=== PATIENT | male | born 1960 | race African-American/Black ===

== ENCOUNTER 2020-02-27 06:55 | Outpatient (CLI) | payer OTHER, SELFPAY ==
[2020-02-27 07:54] LABS: Basophils Absolute Auto 0.1 K/mm3 (0.0-0.1); Basophils Percent Auto 1.1 % (0.2-1.2); Eosinophils Absolute Auto 0.8 K/mm3 (0-0.3); Hematocrit 41.9 % (42.0-52.0); Hemoglobin 13.9 g/dL (14.0-18.0); Immature Granulocyte Absolute 0.02 K/mm3 (0.00-0.031); Immature Granulocyte Percent A 0.4 % (0-0.5); Lymphocytes Absolute Auto 1.73 K/mm3 (0.9-3.2); Lymphocytes Percent Auto 30.6 % (18.3-44.2); Mean Corpuscular HGB Conc 33.2 g/dl (32-36); Mean Corpuscular Hemoglobin 27.9 pg (26-34); Mean Platelet Volume 8.6 fl (7.4-10.4); Monocytes Absolute Auto 0.6 K/mm3 (0.1-0.6); Monocytes Percent Auto 10.1 % (2.6-8.5); Neutrophils Absolute Auto 2.5 K/mm3 (1.3-6.7); Neutrophils Percent Auto 43.8 % (45.5-73.1); Platelet Count Result 211 k/mm3 (150-375); Red Blood Count 4.99 M/mm3 (4.6-6.20); Red Cell Distribution Width 14.1 % (11.5-14.5); White Blood Count 5.7 K/mm3 (4.5-10.0)
[2020-02-27 08:03] LABS: Alanine Aminotransferase 115 U/L (4-50); Albumin Level 4.2 g/dL (3.5-5.1); Alkaline Phosphatase 84 U/L (38-126); Anion Gap 3 mmol/L (8-16); Aspartate Amino Transferase 66 U/L (17-59); Bilirubin,Total 0.5 mg/dL (0.2-1.3); Blood Urea Nitrogen 16 mg/dL (9-20); Calcium 9.7 mg/dL (8.4-10.2); Carbon Dioxide 35 mmol/L (22-30); Chloride 102 mmol/L (98-107); Cholesterol 284 mg/dL (0-200); Estimated Glomerular Filt Rate > 60; Glucose 95 mg/dL (75-110); HDL Direct 44 mg/dL; Potassium 4.4 mmol/L (3.4-5.0); Sodium 140 mmol/L (137-145); Triglycerides 162 mg/dL (<150)
[2020-02-27 08:14] LABS: LDL Cholesterol Direct 213 mg/dL
== END 2020-02-27 06:56 | disposition home or self-care (01) ==
PROVIDERS: PCP Family Medicine; Visit Provider Family Medicine
DX: E78.5 Hyperlipidemia, unspecified (principal); Z79.899 Other long term (current) drug therapy; Z00.00 Encounter for general adult medical examination without abnormal findings; Z12.5 Encounter for screening for malignant neoplasm of prostate
CPT/HCPCS: 36415; 80053; 80061; 84153; 84443; 85025; G0103

== ENCOUNTER 2021-03-15 06:35 | Outpatient (CLI) | payer OTHER, SELFPAY ==
[2021-03-15 07:14] LABS: Basophils Percent Auto 0.5 % (0.2-1.2); Eosinophils Absolute Auto 0.3 K/mm3 (0-0.3); Eosinophils Percent Auto 6.9 % (0-4.4); Hematocrit 42.2 % (42.0-52.0); Hemoglobin 14.1 g/dL (14.0-18.0); Immature Granulocyte Absolute 0.01 K/mm3 (0.00-0.031); Immature Granulocyte Percent A 0.2 % (0-0.5); Lymphocytes Absolute Auto 1.47 K/mm3 (0.9-3.2); Lymphocytes Percent Auto 33.7 % (18.3-44.2); Mean Corpuscular HGB Conc 33.4 g/dl (32-36); Mean Corpuscular Hemoglobin 28.4 pg (26-34); Mean Corpuscular Volume 84.9 fl (80-100); Mean Platelet Volume 8.8 fl (7.4-10.4); Monocytes Absolute Auto 0.5 K/mm3 (0.1-0.6); Monocytes Percent Auto 11.9 % (2.6-8.5); Neutrophils Percent Auto 46.8 % (45.5-73.1); Platelet Count Result 185 k/mm3 (150-375); Red Blood Count 4.97 M/mm3 (4.6-6.20); Red Cell Distribution Width 14.2 % (11.5-14.5); White Blood Count 4.4 K/mm3 (4.5-10.0)
[2021-03-15 07:15] LABS: Add Urine Microscopic? NO; Appearance Urine Clear (Clear); Bilirubin Urine Negative (Negative); Blood Urine Negative (Negative); Color Urine Yellow (Yellow); Glucose Urine UA Negative (Negative); Ketones Urine Negative (Negative); Leukocyte Esterase Ur Negative LEU/UL (Negative); Nitrate Urine Negative (Negative); Protein Urine Negative (Negative); Specific Grav Ur 1.018 (1.001-1.035); Urobilinogen Urine Negative mg/dL (<2.0)
[2021-03-15 07:24] LABS: Alanine Aminotransferase 42 U/L (4-50); Albumin Level 4.4 g/dL (3.5-5.1); Alkaline Phosphatase 55 U/L (38-126); Anion Gap 6 mmol/L (8-16); Aspartate Amino Transferase 36 U/L (17-59); Bilirubin,Total 0.6 mg/dL (0.2-1.3); Blood Urea Nitrogen 18 mg/dL (9-20); Carbon Dioxide 31 mmol/L (22-30); Chloride 102 mmol/L (98-107); Cholesterol 275 mg/dL (0-200); Estimated Glomerular Filt Rate > 60; Glucose 103 mg/dL (65-110); HDL Direct 44 mg/dL; Potassium 4.3 mmol/L (3.4-5.0); Sodium 139 mmol/L (137-145); Triglycerides 154 mg/dL (<150)
[2021-03-15 07:35] LABS: LDL Cholesterol Direct 181 mg/dL
[2021-03-15 07:54] LABS: Prostate Specific Antigen 1.1 ng/mL (< OR = 4.0)
[2021-03-15 08:35] LABS: Hepatitis B Surface Antigen Negative (Negative)
[2021-03-15 08:46] LABS: HAV RESULT Reactive (Negative); Hepatitis B Core IgM Result Negative (Negative)
[2021-03-15 08:52] LABS: Hepatitis C Virus Antibody Negative (Negative)
== END 2021-03-15 06:36 | disposition home or self-care (01) ==
PROVIDERS: PCP Family Medicine; Visit Provider Family Medicine
DX: Z00.00 Encounter for general adult medical examination without abnormal findings (principal); D55.9 Anemia due to enzyme disorder, unspecified; R97.20 Elevated prostate specific antigen [PSA]; E78.5 Hyperlipidemia, unspecified; E55.9 Vitamin D deficiency, unspecified; R79.89 Other specified abnormal findings of blood chemistry; R31.29 Other microscopic hematuria
CPT/HCPCS: 36415; 80053; 80061; 80074; 81003; 82306; 84153; 84443; 85025

== ENCOUNTER 2021-05-03 00:19 | Day surgery (SDC) | payer OTHER, SELFPAY ==
[2021-04-19 15:12] VITALS: BMI 33.7
[2021-05-03 06:47] VITALS: BP 155/79; PULSE 72; RESP 18; TEMP 36.4; O2SAT 100
[2021-05-03] MEDS: LACTATED RINGERS 1,000 ML 150 ML IV CONT (06:59)
--- NOTE | 2021-05-03 07:45 | P.PNAN_ITS ---
Anes - Initial Pre Proc Eval Procedure: Operation Date: 05/03/21 08:00 Proposed Procedures p Screening Colonoscopy - Kel Amin MD Date/Time: 05/03/21 07:45 Surgeon: Kel Amin MD Pre Op Diagnosis: neoplasm screening Patient Data Age: 61 Gender: M Height: 1.68 m Weight: 91.5 kg Last Vital Signs Temp 97.5 F L 05/03/21 06:47 Pulse 72 05/03/21 06:47 Resp 18 05/03/21 06:47 BP 155/79 H 05/03/21 06:47 Pulse Ox 100 05/03/21 06:47 Allergies Allergy/AdvReac Type Severity Reaction Status Date / Time No Known Allergies Allergy Unknown Verified 05/03/21 06:39 Home Medications Medication Instructions Recorded Confirmed Type miconazole nitrate 2 % topical 1 applic TOPICAL DAILY #15 g 03/14/21 04/19/21 Rx cream atorvastatin 20 mg tablet 20 mg PO QHS #90 tablet 03/16/21 04/19/21 Rx Patient hx anesthesia problems: none Family hx anesthesia problems: none Results Review: All pre-operative results and documents have been reviewed as part of the pre-operative evaluation. PMFSH Past Medical History Medical History Dyslipidemia Surgical History Surgical History No pertinent past surgical history Social History Social History Smoking status: Never smoker Second hand tobacco smoke exposure: No Alcohol intake: current Drinks per week: 2 Living arrangements: with family Spiritual care concerns: No Anes - Eval Final PreProcedure Day of Procedure 05/03/21 07:45 Patient weight: obese Heart: regular rate and rhythm Lungs: clear to auscultation Airway: Mallampati scale class II Neurological: alert and oriented Last oral intake: >/= 8 hours ASA classification: II Emergent: no Anesthetic plan: proceed Anesthesia type and monitoring: general GIVS and standard monitoring Results Review: All pre-operative results and documents have been reviewed as part of the pre-operative evaluation. Informed Consent: The patient's anesthetic plan and its attendant risks and bene fits were discussed with the patient/family/POA. Questions were solicited and answers provided to the satisfaction of the patient/family/POA.
--- NOTE | 2021-05-03 07:48 | PM.HPGS ---
History of Present Illness History of Present Illness Consent: Risks, benefits, and alternatives have been discussed and questions answered. Patient agrees to proceed with procedure. Chief complaint: neoplasm screening Narrative: Justin Snow is a 61 year old male here for first screening colonoscopy Review of Systems Constitutional: Constitutional: Denies headache(s) and Denies weakness Eyes: Eyes: Denies blurry vision ENT: Reports Normal hearing present, Denies headache(s) and Denies neck pain Cardiovascular: Cardiovascular: Denies chest pain and Denies dyspnea Respiratory: Respiratory: Denies dyspnea Gastrointestinal: Gastrointestinal: Reports no additional gastrointestinal complaints Genitourinary: Genitourinary: Denies dysuria Musculoskeletal: Musculoskeletal: Denies neck pain Integumentary/Breasts: Skin/Breast: Denies dry skin Neurologic: Reports Normal hearing present, Denies headache(s) and Denies weakness Psychiatric: Psychiatric: Denies anxiety Endocrine: Endocrine: Denies change in body appearance Hematologic/Lymphatic: Hematologic/Lymphatic: Denies easy bleeding Allergic/Immunologic: Allergic/Immunologic: Denies urticaria PMFSH Past Medical History Medical History (Updated 05/03/21 @ 07:49 by Kel Amin MD) Colon cancer screening Dyslipidemia Surgical History Surgical History No pertinent past surgical history Social History Social History Smoking status: Never smoker Second hand tobacco smoke exposure: No Alcohol intake: current Drinks per week: 2 Living arrangements: with family Spiritual care concerns: No Meds Home Medications and Allergies Home Medications Medication Instructions Recorded Confirmed Type miconazole nitrate 2 % topical 1 applic TOPICAL DAILY #15 g 03/14/21 04/19/21 Rx cream atorvastatin 20 mg tablet 20 mg PO QHS #90 tablet 03/16/21 04/19/21 Rx Allergies Allergy/AdvReac Type Severity Reaction Status Date / Time No Known Allergies Allergy Unknown Verified 05/03/21 06:39 Vital Signs Vital Signs - 24 hr 05/03/21 06:47 Temperature 97.5 F L Pulse Rate 72 Respiratory Rate 18 Blood Pressure 155/79 H Pulse Oximetry 100 Exam Const: General: comfortable and no acute distress HENMT: General nose exam: Normal nares present Eyes: General: appearance normal, both eyes and all related structures Neck: Neck: no JVD Resp: Auscultation: clear to auscultation bilaterally Cardio: Rate: regular rate Rhythm: regular rhythm GI: Inspection: non-distended GI Palp: Yes Soft to palpation Skin: General skin exam: normal color Neuro: General: gait normal Speech: normal speech Extrem: General: normal to inspection Psych: Mental Status: mental status grossly normal Assessment and Plan Assessment and plan (1) Colon cancer screening: Code(s): Z12.11 - Encounter for screening for malignant neoplasm of colon Status: Acute Assessment and Plan: colonoscopy
[2021-05-03 08:13] VITALS: BP 102/54; PULSE 70; RESP 21; O2SAT 100
[2021-05-03 08:23] VITALS: BP 156/86; PULSE 73; RESP 18; O2SAT 100
[2021-05-03 08:33] VITALS: BP 153/84; PULSE 74; RESP 20; O2SAT 100
== END 2021-05-03 08:49 | disposition home or self-care (01) ==
PROVIDERS: PCP Family Medicine; Visit Provider Internal Medicine Gastroenterology
PROC: 0DJD8ZZ Inspection of Lower Intestinal Tract, Via Natural or Artificial Opening Endoscopic (ICD-10-PCS; CPT 45378; principal; 2021-05-03 08:00)
DX: Z12.11 Encounter for screening for malignant neoplasm of colon (principal); K64.8 Other hemorrhoids; E78.5 Hyperlipidemia, unspecified; E66.9 Obesity, unspecified; Z68.32 Body mass index [BMI] 32.0-32.9, adult
CPT/HCPCS: 45378; J2704; J7120

== ENCOUNTER 2021-06-21 12:52 | Outpatient (CLI) | payer OTHER, SELFPAY ==
--- NOTE | 2021-06-21 12:58 | ECHO_ITS ---
Patient Info Name: Justin Snow Age: 61 years : 1960 Gender: Male Ht: 66 in Wt: 200 lbs BSA: 2.09 m2 HR: 75 bpm BP: 154 / 82 mmHg Technical Quality: Good Exam Date: 06/21/2021 1:37 PM Exam Location: [facility] Patient Status: Outpatient Admit Date: 06/21/2021 Staff Ordering Physician: Elton Guajardo MD Embedded Software Developer: Dash Saucedo, PAN, RT Attending Provider: Elton Guajardo MD Exam Type: CA echo doppler color flow Study Info Indications R01.1 - Cardiac murmur, unspecified Complete two-dimensional, color flow and Doppler transthoracic echocardiogram is performed. Strain analysis performed. Summary 1. Complete two-dimensional, color flow and Doppler transthoracic echocardiogram is performed. 2. Left ventricular chamber dimension is normal. 3. Ventricular septum is sigmoid shaped. No LVOT obstruction. 4. Left ventricular systolic function is normal, estimated at 60-65%. 5. There is mildly increased left ventricular wall thickness. 6. The left ventricular diastolic function is grade II diastolic dysfunction. 7. E/e' 6 is not elevated. 8. Global longitudinal strain is mildly abnormal at -16.3%. 9. There is moderate aortic valve sclerosis. 10. There is mild aortic valve stenosis with a peak velocity of 180 cm/s, mean gradient of 7 mmHg, and aortic valve area of 1.6 cm2. 11. There is mild aortic valve regurgitation. 12. There is trace mitral valve regurgitation. 13. There is trace pulmonic regurgitation. Left Ventricle E/e' 6 is not elevated. Global longitudinal strain is mildly abnormal at -16.3%. Ventricular septum is sigmoid shaped. No LVOT obstruction. Left ventricular chamber dimension is normal. Left ventricular systolic function is normal, estimated at 60-65%. There is mildly increased left ventricular wall thickness. The left ventricular diastolic function is grade II diastolic dysfunction. Right Ventricle Right ventricular systolic function is normal and with normal TAPSE 2.1 cm. Right ventricular chamber dimension is normal. Left Atria Left atrial chamber dimension is normal. Right Atria Right atrial chamber dimension is normal. Aortic Valve The aortic valve is trileaflet. There is moderate aortic valve sclerosis. There is mild aortic valve stenosis with a peak velocity of 180 cm/s, mean gradient of 7 mmHg, and aortic valve area of 1.6 cm2. There is mild aortic valve regurgitation. Pulmonic Valve There is trace pulmonic regurgitation. Mitral Valve There is no mitral valve stenosis. There is trace mitral valve regurgitation. Tricuspid Valve There is no tricuspid valve regurgitation. Pericardium/Pleural There is no pericardial effusion. Inferior Vena Cava Normal inferior vena cava with >50% collapse upon inspiration consistent with normal right atrial pressure, 5 mmHg. Aorta The aortic root size at the sinus of Valsalva is normal. Left Ventricular Outflow Tract Name Value Normal LVOT 2D LVOT Diameter 2.0 cm LVOT Doppler LVOT Peak Gradient 4 mmHg LVOT Mean Gradient 2 mmHg LVOT
== END 2021-06-21 12:53 | disposition home or self-care (01) ==
PROVIDERS: PCP Family Medicine; Visit Provider Family Medicine
DX: R01.1 Cardiac murmur, unspecified (principal); I35.2 Nonrheumatic aortic (valve) stenosis with insufficiency
CPT/HCPCS: 93306

== ENCOUNTER 2022-08-18 07:27 | Outpatient (CLI) | payer OTHER, SELFPAY ==
--- NOTE | ~2022-08-18 | XR_ITS ---
XR lumbar spine 2-3V 08/18/2022 07:45 Indication: Low back pain after lifting injury Procedure: 3 views lumbar spine Comparison: No prior studies for comparison. Findings: There is mild disc narrowing at L3-4 through L5-S1. Vertebral body heights are maintained. No acute fracture or traumatic malalignment. No spondylolisthesis. Sacral foramen are symmetric. Pedi cles intact. Impression: 1: Mild lumbar spondylosis. Reviewed, dictated and finalized at location A. Impression: 1: Mild lumbar spondylosis.
== END 2022-08-18 07:28 | disposition home or self-care (01) ==
PROVIDERS: PCP Family Medicine; Visit Provider Nurse Practitioner Family
DX: M47.816 Spondylosis without myelopathy or radiculopathy, lumbar region (principal)
CPT/HCPCS: 72100

== ENCOUNTER 2023-11-02 02:42 | Emergency (ER) | payer OTHER, SELFPAY ==
--- NOTE | ~2023-11-02 | CT_ITS ---
EXAMINATION: CT brain wo con DATE: 11/02/2023 04:37 INDICATION: Headache. TECHNIQUE: Computed tomography (CT) of the head was performed without intravenous contrast. The mA wa s adjusted according to patient size. Iterative reconstruction technique was employed. The dose-lengt h product was 681.00 mGy-cm. COMPARISON: None FINDINGS: There is no intracranial hemorrhage, acute infarction, or abnormal intracranial mass lesion . The ventricles are normal in size. The paranasal sinuses are clear. The orbits are normal. The mast oid air cells are normal. IMPRESSION: 1. Normal brain. Reviewed, dictated and finalized at location A. IMPRESSION: 1. Normal brain.
[2023-11-02 02:46] VITALS: BP 178/76; PULSE 66; RESP 20; TEMP 36.7; O2SAT 99
[2023-11-02] MEDS: SODIUM CHLORIDE 0.9% IV 1,000 ML 999 ML IV CONT (04:59)
[2023-11-02] MEDS: KETOROLAC 30 MG/ML VIAL (*BKC) IV PUSH (05:05)
[2023-11-02] MEDS: PROCHLORPERAZINE EDISYLATE 10 MG/2 ML VIAL IV PUSH (05:05)
[2023-11-02] MEDS: diphenhydrAMINE HCl INJ 50 MG/ML VIAL IV PUSH (05:05)
[2023-11-02 05:06] VITALS: BP 167/78; PULSE 60; RESP 17; O2SAT 100
[2023-11-02 05:11] LABS: Basophils Percent Auto 0.9 % (0.2-1.2); Eosinophils Absolute Auto 0.1 K/mm3 (0-0.3); Eosinophils Percent Auto 2.6 % (0-4.4); Hematocrit 36.4 % (42.0-52.0); Hemoglobin 11.9 g/dL (14.0-18.0); Immature Granulocyte Absolute 0.02 K/mm3 (0.00-0.031); Immature Granulocyte Percent A 0.5 % (0-0.5); Lymphocytes Absolute Auto 1.26 K/mm3 (0.9-3.2); Lymphocytes Percent Auto 29.8 % (18.3-44.2); Mean Corpuscular HGB Conc 32.7 g/dl (32-36); Mean Corpuscular Hemoglobin 27.8 pg (26-34); Mean Platelet Volume 8.1 fl (7.4-10.4); Monocytes Absolute Auto 0.4 K/mm3 (0.1-0.6); Monocytes Percent Auto 9.9 % (2.6-8.5); Neutrophils Absolute Auto 2.4 K/mm3 (1.3-6.7); Neutrophils Percent Auto 56.3 % (45.5-73.1); Platelet Count Result 292 k/mm3 (150-375); Red Blood Count 4.28 M/mm3 (4.6-6.20); Red Cell Distribution Width 14.3 % (11.5-14.5); White Blood Count 4.2 K/mm3 (4.5-10.0)
[2023-11-02 05:20] LABS: Alanine Aminotransferase 20 U/L (6-50); Albumin Level 3.7 g/dL (3.5-5.1); Alkaline Phosphatase 68 U/L (38-126); Anion Gap 5 mmol/L (4-12); Aspartate Amino Transferase 34 U/L (17-59); Bilirubin,Total 0.4 mg/dL (0.2-1.3); Blood Urea Nitrogen 10 mg/dL (9-20); Calcium 8.4 mg/dL (8.4-10.2); Carbon Dioxide 29 mmol/L (22-30); Chloride 102 mmol/L (98-107); Estimated CRCL calculation 72 ml/min; Estimated Glomerular Filt Rate > 60; Glucose 95 mg/dL (65-110); Potassium 4.2 mmol/L (3.4-5.0); Sodium 136 mmol/L (137-145)
[2023-11-02 05:34] LABS: Strep Group A RT-PCR DETECTED (Negative)
--- NOTE | 2023-11-02 05:43 | ED.GENADULT ---
HPI - General Adult General Chief complaint: Headache Stated complaint: headache Time Seen by Provider: 11/02/23 04:08 History of Present Illness HPI narrative: patient is a 63-year-old gentleman who presents emergency department with chief complaint of headache for the last 3 days the patient also reports he has had some body aches and sore throat. Patient reports he has had no fever of reports that the headache is significantly bother him. Patient reports no photophobia denies nuchal rigidity Related Data Home Medications Medication Instructions Recorded Confirmed hydroxyzine HCl 10 mg tablet 10 mg PO QHS PRN 10/02/23 10/02/23 ketoconazole 2 % topical cream applic topical .2 times weekly 10/02/23 10/02/23 ruxolitinib 1.5 % topical cream applic topical BID 10/02/23 10/02/23 (Opzelura) Allergies Allergy/AdvReac Type Severity Reaction Status Date / Time No Known Allergies Allergy Unknown Verified 10/02/23 07:42 Review of Systems Review of Systems: A 10 system review of systems was completed on the patient and is negative except for what is stated in the HPI. Nursing and ancillary documentation was reviewed. [facility] Past Medical History Medical History Colon cancer screening Dyslipidemia Surgical History Surgical History No pertinent past surgical history Social History Social History Smoking status: Never smoker Second hand tobacco smoke exposure: No Alcohol intake: current Drinks per week: 2 Lack of Transportation: No Lack of Food: Never True Current Housing: I Have Housing Concerned About Future Housing: No Difficulty Paying Gas/Electric Bills: No Difficulty Paying for Meds: No Currently Unemployed: No Education: Master's Degree or Higher Difficulty w/ Childcare or Family Care: No Living arrangements: with family Spiritual care concerns: No Exam Narrative: GENERAL: Well-appearing, well-nourished, and in no acute distress. HEAD: Normocephalic, atraumatic. EYES: PERRLA and EOMI. ENT: Nares clear, no rhinorrhea or epistaxis. Mucous membranes moist. NECK: Supple. CHEST: Clear to auscultation. No respiratory distress. HEART: Regular rate and rhythm. No murmur heard. Normal peripheral pulses. ABDOMEN: Soft, nontender, nondistended, normal active bowel sounds. EXTREMITIES: Normal range of motion. No edema. SKIN: Warm, dry, no rash. NEURO: No focal deficits. Alert and oriented x3. PSYCH: Normal mood and affect. Course Vital Signs Vital signs: Vital Signs Temperature 36.7 C 11/02/23 02:46 Pulse Rate 66 11/02/23 02:46 Respiratory Rate 20 11/02/23 02:46 Blood Pressure 178/76 H 11/02/23 02:46 Pulse Oximetry 99 11/02/23 02:46 Oxygen Delivery Room Air 11/02/23 02:46 Temperature 36.7 C 11/02/23 02:46 Pulse Rate 60 11/02/23 05:06 Respiratory Rate 17 11/02/23 05:06 Blood Pressure 167/78 H 11/02/23 05:06 Pulse Oximetry 100 11/02/23 05:06 Oxygen Delivery Room Air 11/02/23 02:46 Medical Decision Making [facility] Narrative Medical decision making narrative: differential diagnosis includes strep pharyngitis, COVID flu, RSV, migraine headache laboratory studies were obtained on the patient shows CBC with white count 4.2 electrolytes are within normal limits strep was positive Vital Signs Vital Signs: Vital Signs Temperature 36.7 C 11/02/23 02:46 Pulse Rate 66 11/02/23 02:46 Respiratory Rate 20 11/02/23 02:46 Blood Pressure 178/76 H 11/02/23 02:46 Pulse Oximetry 99 11/02/23 02:46 Oxygen Delivery Room Air 11/02/23 02:46 Temperature 36.7 C 11/02/23 02:46 Pulse Rate 60 11/02/23 05:06 Respiratory Rate 17 11/02/23 05:06 Blood Pressure 167/78 H 11/02/23 05:06 Pulse Oximetry 100 11/02/23 05:06
[2023-11-02 05:46] LABS: Influenza A QL RT-PCR Negative (Negative); Influenza B QL RT-PCR Negative (Negative); RSV RNA, RT-PCR Negative (Negative); SARS-CoV-2 RNA PCR Negative (Negative)
[2023-11-02 06:46] VITALS: BP 167/83; PULSE 60; RESP 15; O2SAT 99
== END 2023-11-02 06:47 | disposition home or self-care (01) ==
PROVIDERS: Emergency Provider Emergency Medicine; PCP Family Medicine
DX: J02.0 Streptococcal pharyngitis (principal); R51.9 Headache, unspecified; E78.5 Hyperlipidemia, unspecified; Z20.822 Contact with and (suspected) exposure to COVID-19
CPT/HCPCS: 36415; 70450; 80053; 85025; 87637; 87651; 96361; 96374; 96375; 99284; J0780; J1200; J1885; J7030

== ENCOUNTER 2024-01-04 07:16 | Outpatient (CLI) | payer OTHER, SELFPAY ==
[2024-01-04 07:53] LABS: Basophils Percent Auto 0.7 % (0.2-1.2); Eosinophils Absolute Auto 0.2 K/mm3 (0-0.3); Eosinophils Percent Auto 5.8 % (0-4.4); Hematocrit 42.9 % (42.0-52.0); Hemoglobin 13.9 g/dL (14.0-18.0); Immature Granulocyte Absolute 0.01 K/mm3 (0.00-0.031); Immature Granulocyte Percent A 0.2 % (0-0.5); Lymphocytes Absolute Auto 1.57 K/mm3 (0.9-3.2); Lymphocytes Percent Auto 38.2 % (18.3-44.2); Mean Corpuscular HGB Conc 32.4 g/dl (32-36); Mean Corpuscular Hemoglobin 28.3 pg (26-34); Mean Corpuscular Volume 87.4 fl (80-100); Mean Platelet Volume 8.4 fl (7.4-10.4); Monocytes Absolute Auto 0.5 K/mm3 (0.1-0.6); Monocytes Percent Auto 10.9 % (2.6-8.5); Neutrophils Absolute Auto 1.8 K/mm3 (1.3-6.7); Neutrophils Percent Auto 44.2 % (45.5-73.1); Platelet Count Result 211 k/mm3 (150-375); Red Blood Count 4.91 M/mm3 (4.6-6.20); Red Cell Distribution Width 15.9 % (11.5-14.5); White Blood Count 4.1 K/mm3 (4.5-10.0)
[2024-01-04 08:05] LABS: Alanine Aminotransferase 25 U/L (6-50); Albumin Level 4.2 g/dL (3.5-5.1); Alkaline Phosphatase 50 U/L (38-126); Anion Gap 6 mmol/L (4-12); Aspartate Amino Transferase 30 U/L (17-59); Bilirubin,Total 0.6 mg/dL (0.2-1.3); Blood Urea Nitrogen 14 mg/dL (9-20); Calcium 9.3 mg/dL (8.4-10.2); Carbon Dioxide 32 mmol/L (22-30); Chloride 103 mmol/L (98-107); Cholesterol 257 mg/dL (0-200); Estimated Glomerular Filt Rate > 60; Glucose 90 mg/dL (65-110); HDL Direct 40 mg/dL; Potassium 4.3 mmol/L (3.4-5.0); Sodium 141 mmol/L (137-145); Triglycerides 164 mg/dL (<150)
[2024-01-04 08:16] LABS: LDL Cholesterol Direct 152 mg/dL
[2024-01-04 08:34] LABS: Prostate Specific Antigen 1.2 ng/mL (< OR = 4.0)
[2024-01-04 08:43] LABS: Vitamin D 25 Hydroxy 27.9 ng/mL
== END 2024-01-04 07:17 | disposition home or self-care (01) ==
LOC: ANHLAB 07:17
PROVIDERS: PCP Family Medicine; Visit Provider Family Medicine
DX: Z00.00 Encounter for general adult medical examination without abnormal findings (principal); Z79.899 Other long term (current) drug therapy; Z12.5 Encounter for screening for malignant neoplasm of prostate; E55.9 Vitamin D deficiency, unspecified; E53.8 Deficiency of other specified B group vitamins
CPT/HCPCS: 36415; 80053; 80061; 82306; 82607; 84153; 84443; 85025; G0103

== ENCOUNTER 2024-10-19 07:24 | Outpatient (CLI) | payer OTHER, SELFPAY ==
--- OUTSIDE RECORDS SUMMARY | 2024-10-19 07:28 | XMS_ITS | Clinical Summary ---
Author Organization [facility] Address [address] [place] [address] Care Team Providers Care Photovoltaic Solar Cell Designer Name Role Phone Unavailable Primary Care Provider Unavailabl e Source Comments [facility],non-owned Affiliates and Associated Physician Practices is amultiple site organization consisting of ambulatory clinics and hospital sitesin [place], [place], [place] and [place]. This disclosure is being madepursuant to the Care Everywhere program and may not contain all information available regarding this patient. Last updated 17.[facility] [email or web address] Allergies No known active allergies Medications * Be aware that medications may not be up to date on this document. Alwaysverify current medications with the patient. Other terbiforte hydrochloride cream Bid Active ciprofloxacin (CIPRO) 500 MG tablet Take 1 tablet by mouth 2 times daily 20 tablet 05/22/19 20 Active tacrolimus (PROTOPIC) 0.1 % ointmentIndication s:Rash and other nonspecific skin eruption,Lichenifi cation and lichen simplex chronicus Apply to affected areas on buttock/groin two times daily. 30 days supply. 100 g 1 08/13/19 20 Active econazole nitrate (SPECTAZOLE) 1 % creamIndications:R alyssa and other nonspecific skin eruption,Erosio interdigitalis blastomycetica Apply to affected area between toes 2 times daily. 30 days supply. 85 g 1 08/13/19 20 Active levoFLOXacin (LEVAQUIN) 500 MG tabletIndications: Pseudomonas infection Take 1 tablet by mouth once daily 60 tablet 12/04/19 20 Active fluconazole (DIFLUCAN) 150 MG tabletIndications: Erosio interdigitalis blastomycetica Take 150mg by mouth once a week for 8 weeks. 8 tablet 01/29/20 Active Additional Information Patient taking differently: 150 mg Oral ONCE, Take 150mg by mouth once a week for 8 weeks., Reported on 01/29/2020 ketoconazole (NIZORAL) 2 % creamIndications:E rhoda interdigitalis blastomycetica Apply to toe spaces and buttock twice daily. 30 days supply. 60 g 5 01/29/20 Active hydrOXYzine hcl (ATARAX) 25 MG tabletIndications: Other pruritus Take 1-2 tablets nightly, as needed. 30 tablet 1 01/29/20 Active Additional Information Patient taking differently: 25 mg Oral PRN, Take 1-2 tablets nightly, as needed., Reported on 01/29/2020 gentamicin (GARAMYCIN) 0.1 % topical ointmentIndication s:Skin infection Apply to affected area 3 times daily Apply to affected areas at feet and between toes and gluteal cleft/buttocks three times daily. 30 days supply 30 g 1 01/29/20 Active Active Problems Problem Noted Date Diagnosed Date Dermatophytosis 12/04/2019 Enlargement of submandibular gland 12/04/2019 Heart murmur 12/04/2019 Routine general medical exam ination at a health care facility 12/04/2019 Resolved Problems Problem Noted Date Diagnosed Date Resolved Date Constipation 12/04/2019 01/01/2020 Immunizations Immunization Administration Dates Next Due INFLUENZA VACCINE 01/22/2019 Family History Medical History Relation Name Comments Asthma Neg Hx CVA Neg Hx Cancer - Breast Neg Hx Cancer - Other Neg Hx Cancer - Skin, Melanoma Neg Hx Cancer - Skin, Non Melanoma Neg Hx Eczema Neg Hx Hemophilia Neg Hx Psoriasis Neg Hx Social History Tobacco Use Types Packs/Day Years Used Date Smoking Tobacco: Never Smokeless Tobacco: Never Sex and Gender Information Value Date Recorded Sex Assigned at Not on file Legal 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 Gender Identity Not on file Sexual Orientation Not on file Plan of Treatment Health Maintenance Due Date Last Done Comments COLOGUARD (AGES 45-75) - COL ON CA SCREENING 1960 COLON MONITORING 1960 COLONOSCOPY - COLON CA SCREENING 1960 CT COLONOGRAPHY - COLON CA SCREENING 1960 Colorectal Cancer Screening 1960 FIT - COLON CA SCREENING 1960 FLEX SIG - COLON CA SCREENING 1960 LIPID TESTING 1960 HIV SCREENING 1974 HEPATITIS C SCREENING 03/16/1977 DTAP/TDAP/TD VACCINES (1 - Tdap) 1978 PNEUMOCOCCAL VACCINE 50+ (1 of 1 - PCV) 2009 ZOSTER VACCINE (1 of 2) 2009 COVID-19 VACCINE (1 - 2023-2 5 season) 2023 DEPRESSION SCREENING 03/11/2024 INFLUENZA VACCINE (#1) 2024 01/22/2019 Respiratory Syncytial Virus (RSV) Vaccine Pt: or over 60 yrs (1 - 1-dose 75+ series) 2034 HEPATITIS B VACCINE Aged Out No longe r eligible based on patient's age to complete this topic HIB VACCINE Aged Out No longer eligi ble based on patient's age to complete this topic HPV VACCINE Aged Out No longer eligi ble based on patient's age to complete this topic MENINGOCOCCAL (Group B) VACC INE SHARED DECISION-MAKING Aged Out No longer eligibl e based on patient's age to complete this topic MENINGOCOCCAL GROUPS A/C/Y/W VACCINE Aged Out No longer eligible b ased on patient's age to complete this topic Insurance Joberator Joberator
--- OUTSIDE RECORDS SUMMARY | 2024-10-19 07:28 | XMS_ITS | Encounter Summary ---
Author Organization [facility] Address [address] [place] [address] Care Team Providers Care Peer Health Promoter Name Role Phone Unavailable Primary Care Provider Unavailabl e Reason for Visit * Reason Onset Date Comments Results 05/04/2019 Encounter Details Date Type Department Care Team (Late st Contact Info) Description 05/04/2019 Telephone [facility] [address] [place] [address] Keri Aguillon MD [address] [facility] [address] [place] [address] Results Social History Tobacco Use Types Packs/Day Years Used Date Smoking Tobacco: Never Smokeless Tobacco: Never Sex and Gender Information Value Date Recorded Sex Assigned at Not on file 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 He is inquiring about test results. Please advise L COATER * Telephone Encounter - Sidney Pulido MD - 05/05/2019 8:44 AM CST Called patient and left VM. Will try again later. Sidney Pulido MD [facility] Dermatology Resident PGY-II L COATER * Telephone Encounter - Keri Aguillon MD - 05/05/2019 8:[address] uPlido, Please call patient to review Cx results. We had trouble reaching him last week. I will re-forward you the culture result note and have also copied it below here. Please call and update patient. ??Fungal/yeast prelim negative x 2. ??Bacterial Cx from foot and buttocks showing the same results, positive for pseudomonas and citrobacter. ??Rec start [id number] BID x 10 days. ??Both organisms will be treated by this. ??Warn of black box warning of tendon rupture, avoid quick movements/strenuous activity and prednisone to decrease risk but limited antib iotic options given both types of organisms. D/c econazole cream for now pending fungal Cx results.??Start gentamicin ointment TID with vinegar soaks to all areas. ??Will follow up pending final Cx result and when records received. ??Please send both Rx. ?? On Saturday05/01/2019, after third attempt to reach patient I went ahead and sent in Rx for gentamicin ointment so he likely needs to pick that up and Rx for cipro. Thanks, Keri Aguillon MD 8:15 AM, 05/05/2019 L COATER * Telephone Encounter - Lyndsey Gusman - 05/04/2019 10:20 AM CST Pt called asking for Results from his culture. His cell ph [phone]. Sarita Gusman Senior Patient Cigar Patcher Department of Dermatology, Mohs Surgery and Cutaneous Oncology [facility] Dermatology [facility] L COATER documented in this encounter Plan of Treatment Not on file documented as of this encounter Visit Diagnoses Not on filedocumented in this encounter
[2024-10-19 08:17] LABS: Hemoglobin A1C 6.3 % (<5.7)
[2024-10-19 08:23] LABS: Alanine Aminotransferase 28 U/L (6-50); Albumin Level 4.0 g/dL (3.5-5.1); Alkaline Phosphatase 60 U/L (38-126); Anion Gap 6 mmol/L (4-12); Aspartate Amino Transferase 47 U/L (17-59); Bilirubin,Total 0.7 mg/dL (0.2-1.3); Blood Urea Nitrogen 13 mg/dL (9-20); Calcium 8.9 mg/dL (8.4-10.2); Carbon Dioxide 26 mmol/L (22-30); Chloride 107 mmol/L (98-107); Cholesterol 244 mg/dL (0-200); Estimated Glomerular Filt Rate > 60; Glucose 95 mg/dL (65-110); HDL Direct 40 mg/dL; Potassium 3.8 mmol/L (3.4-5.0); Sodium 139 mmol/L (137-145); Total Protein 7.3 g/dL (6.3-8.2); Triglycerides 103 mg/dL (<150)
== END 2024-10-19 07:25 | disposition home or self-care (01) ==
LOC: ANHLAB 07:27
PROVIDERS: PCP Family Medicine; Visit Provider Family Medicine
DX: E78.5 Hyperlipidemia, unspecified (principal); I10 Essential (primary) hypertension; R73.9 Hyperglycemia, unspecified; E55.9 Vitamin D deficiency, unspecified
CPT/HCPCS: 36415; 80053; 80061; 82306; 83036

== ENCOUNTER 2025-01-13 10:14 | Outpatient (CLI) | payer OTHER, SELFPAY ==
--- NOTE | ~2025-01-13 | US_ITS ---
BILATERAL LOWER EXTREMITY VENOUS DUPLEX Clinical History: R60.0 - Localized edema . Comparison: 08/07/2016. Technique: Grayscale, color, duplex/spectral Doppler sonography bilateral lower extremities. Findings: Bilateral common femoral, femoral, popliteal, and calf veins compressible and color Doppler patent. Normal augmentation with distal compression. No internal echoes. IMPRESSION: 1. No DVT either leg. Reviewed, dictated and finalized at location R. DELIVERER IMPRESSION: 1. No DVT either leg.
== END 2025-01-13 10:15 | disposition home or self-care (01) ==
LOC: GOSHIMG 10:15
PROVIDERS: PCP Family Medicine; Visit Provider Nurse Practitioner Family
DX: R60.0 Localized edema (principal)
CPT/HCPCS: 93970

== ENCOUNTER 2025-01-13 11:15 | Outpatient (CLI) | payer OTHER, SELFPAY ==
[2025-01-13 13:58] LABS: Hematocrit 41.6 % (42.0-52.0); Hemoglobin 13.6 g/dL (14.0-18.0); Immature Granulocyte Percent A 0.4 % (0-0.5); Lymphocytes Absolute Auto 0.95 K/mm3 (0.9-3.2); Mean Corpuscular HGB Conc 32.7 g/dl (32-36); Mean Corpuscular Hemoglobin 28.0 pg (26-34); Mean Corpuscular Volume 85.8 fl (80-100); Nucleated Red Blood Cells Absolute Auto 0.000 K/mm3 (0.0-0.012); Nucleated Red Blood Cells Perc 0.0 % (0.0-0.2); Platelet Count Result 155 k/mm3 (150-375); Red Blood Count 4.85 M/mm3 (4.6-6.20); White Blood Count 5.3 K/mm3 (4.5-10.0)
[2025-01-13 14:09] LABS: Alanine Aminotransferase 65 U/L (6-50); Albumin Level 4.2 g/dL (3.5-5.1); Alkaline Phosphatase 64 U/L (38-126); Anion Gap 5 mmol/L (4-12); Aspartate Amino Transferase 59 U/L (17-59); Bilirubin,Total 0.4 mg/dL (0.2-1.3); Blood Urea Nitrogen 16 mg/dL (9-20); Calcium 9.2 mg/dL (8.4-10.2); Carbon Dioxide 32 mmol/L (22-30); Chloride 100 mmol/L (98-107); Estimated Glomerular Filt Rate > 60; Glucose 97 mg/dL (65-110); Potassium 4.4 mmol/L (3.4-5.0); Sodium 137 mmol/L (137-145); Total Protein 8.0 g/dL (6.3-8.2)
--- OUTSIDE RECORDS SUMMARY | 2025-01-14 10:52 | XMS_ITS | Clinical Summary ---
Author Organization [facility] Address [address] [place] [address] Care Team Providers Care Screener And Blender Operator Name Role Phone Unavailable Primary Care Provider Unavailabl e Source Comments [facility],non-owned Affiliates and Associated Physician Practices is amultiple site organization consisting of ambulatory clinics and hospital sitesin [place], [place], [place] and [place]. This disclosure is being madepursuant to the Care Everywhere program and may not contain all information available regarding this patient. 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
--- OUTSIDE RECORDS SUMMARY | 2025-01-14 10:52 | XMS_ITS | Encounter Summary ---
Author Organization [facility] Address [address] [place] [address] Care Team Providers Care Cardiology Nurse Name Role Phone Unavailable Primary Care Provider Unavailabl e Reason for Visit * Reason Onset Date Comments Results 05/04/2019 Encounter Details Date Type Department Care Team (Late st Contact Info) Description 05/04/2019 Telephone [facility] [address] [place] [address] Keri Aguillon MD [address] [facility] [address] [place] [address] Results Social History Tobacco Use Types Packs/Day Years Used Date Smoking Tobacco: Never Smokeless Tobacco: Never Sex and Gender Information Value Date Recorded Sex Assigned at Not on file 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 He is inquiring about test results. Please advise CH HOUSE OPERATOR * Telephone Encounter - Sidney Pulido MD - 05/05/2019 8:44 AM CST Called patient and left VM. Will try again later. Sidney Pulido MD [facility] Dermatology Resident PGY-II CH HOUSE OPERATOR * Telephone Encounter - Keri Aguillon MD - 05/05/2019 8:[address] Pulido, Please call patient to review Cx results. We had trouble reaching him last week. I will re-forward you the culture result note and have also copied it below here. Please call and update patient. ??Fungal/yeast prelim negative x 2. ??Bacterial Cx from foot and buttocks showing the same results, positive for pseudomonas and citrobacter. ??Rec start [id number] BID x 10 days. ??Both organisms will [...] Thanks, Keri Aguillon MD 8:15 AM, 05/05/2019 CH HOUSE OPERATOR * Telephone Encounter - Lyndsey Gusman - 05/04/2019 10:20 AM CST Pt called asking for Results from his culture. His cell ph [phone]. Sarita Gusman Senior Patient Patient Ambassador Department of Dermatology, Mohs Surgery and Cutaneous Oncology [facility] CH HOUSE OPERATOR documented in this encounter Plan of Treatment Not on file documented as of this encounter Visit Diagnoses Not on filedocumented in this encounter
== END 2025-01-13 11:16 | disposition home or self-care (01) ==
LOC: ANHGOSHLAB 11:17
PROVIDERS: PCP Family Medicine; Visit Provider Nurse Practitioner Family
DX: L03.116 Cellulitis of left lower limb (principal)
CPT/HCPCS: 36415; 80053; 85025